=== PATIENT | female | born 1945 | race Caucasian/White ===

== ENCOUNTER 2016-08-14 08:31 | Day surgery (SDC) | payer OTHER ==
[2016-08-05 10:11] LABS: HEMATOCRIT 41.4 % (36.0-48.0); HEMOGLOBIN 13.5 g/dL (12.0-16.0)
[2016-08-05 10:27] LABS: BUN (BLOOD UREA NITROGEN) 13 MG/DL (6-23); CALCIUM, SERUM 8.9 MG/DL (8.5-10.4); CHLORIDE, SERUM 103 MMOL/L (96-112); CO2 (CARBON DIOXIDE) 28 MMOL/L (24-34); CREATININE 0.96 MG/DL (0.55-1.02); GFR AFRICAN AMERICAN 70 ML/MIN (>=60); GFR NON AFRICAN AMERICAN 61 ML/MIN (>=60); GLUCOSE, SERUM 101 MG/DL (60-99); POTASSIUM, SERUM 3.6 MMOL/L (3.5-5.3); SODIUM, SERUM 142 MMOL/L (135-148)
--- NOTE | ~2016-08-14 | OP ---
Record Of Operation [place] [id number] [place]. [address] NAME: CLEVELAND MÁRQUEZ : 49 STATUS : [facility]#: [id number] AGE: 71 ADM/REG DATE : 08/14/16 MR#: [id number] REPORT SERV DATE: 08/18/16 DICTATED BY: JUSTIN AVITIA. DATE: 08/14/16 REPORT STATUS : Draft TRANSCRIBED BY: MODL DATE: 08/14/16 DATE OF PROCEDURE: 08/14/2016 OPERATIVE SURGEON: Justin Avitia M.D. OPERATIVE REHEATER: OPA. Jordy COMPLICATIONS: None. ESTIMATED BLOOD LOSS: Minimal. DISPOSITION: Stable to recovery room. ANESTHESIA: General with interscalene block augmentation for postoperative pain control. PREOPERATIVE DIAGNOSES: 1. Left shoulder pain. 2. 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 3. Degenerative labral tear. 4. Subacromial impingement. 5. Acromioclavicular joint osteoarthritis with impingement. 6. Rotator cuff tendonitis/possible tear. 7. Partial-thickness rotator cuff tear. POSTOPERATIVE DIAGNOSES: 1. Left shoulder pain. 2. Glenohumeral joint osteoarthritis/chondromalacia. 3. Degenerative labral tear. 4. Small full thickness supraspinatus rotator cuff tear. 5. Subacromial impingement. 6. Acromioclavicular joint osteoarthritis with impingement. OPERATIVE PROCEDURE: 1. Left shoulder examination under anesthesia. 2. Left shoulder arthroscopy. 3. Extensive debridement of degenerative labral tear, near circumferentially. 4. Shaving chondroplasty of the glenohumeral joint. 5. Small full thickness supraspinatus rotator cuff repair using a single row technique. 6. Subacromial decompression. 7. Distal clavicular resection (approximately 1 cm). DESCRIPTION OF PROCEDURE: The diagnoses listed above as well as recommended surgical procedure, risks, benefits, thereof were discussed in full detail with Cleveland Márquez and family on the morning of 08/14/2016. The patient and family asked appropriate questions, which were answered to their satisfaction. Informed consent was signed, witnessed, and placed in the chart. The left upper extremity was marked for confirmation and an Record Of Operation [place] [id number] [facility]. [address] NAME: CLEVELAND MÁRQUEZ : 49 STATUS : [facility] PAT#: [id number] AGE: 71 ADM/REG DATE : 08/14/16 MR#: [id number] REPORT SERV DATE: 08/18/16 DICTATED BY: JUSTIN AVITIA DATE: 08/14/16 REPORT STATUS : Draft TRANSCRIBED BY: CARLIE DATE: 08/14/16 interscalene block was placed by the anesthesia team with good success. The patient was then wheeled to the operative arena where general anesthesia was administered. The patient was placed in the lateral decubitus position with an axillary roll in place, and all nonoperative extremities were well padded and secured for the duration of the case. The left lower extremity was examined under anesthesia, and placed in 5 pounds of longitudinal traction, and prepped and draped in the typical orthopedic sterile fashion. A surgical pause was performed, confirming both the correct patient, as well as proper surgical site and procedure. All present were in agreement. The patient received appropriate antibiotics for perioperative antibiosis. All standard anatomic landmarks, as well as arthroscopic portal sites were demarcated using a sterile marking pen. A 15 mL of 0.5% Marcaine without epinephrine was injected in standard posterior, lateral, and anterior portal sites. An 11 blade was used to establish the posterior portal through which an arthroscopic cannula and blunt obturator were inserted atraumatically into the glenohumeral joint. A full diagnostic arthroscopy was performed. There was evidence for degenerative chondromalacia of the glenohumeral joint with several areas of grade 2 to 3 chondromalacia noted. There was also evidence for near circumferential degenerative labral tear. The biceps itself was in decent condition as it traversed in the bicipital groove without evidence for significant tearing or subluxation. There was evidence for a point full-thickness articular sided supraspinatus rotator cuff tear. The subscapularis appeared to be in decent condition. The middle and inferior glenohumeral ligaments as well as the axillary pouch were all within normal limits. Using an inside-out approach, an anterior portal was established and dammed cannula was placed. An arthroscopic shaver was used to perform an extensive debridement of the degenerative labral tear. A shaving chondroplasty was conducted of the glenohumeral joint. The shaver was then used to debride all damaged rotator cuff tissue in preparation for rotator cuff repair. The arthroscope was then withdrawn from the glenohumeral joint and inserted into the subacromial space. The bursal surface of the rotator cuff was evaluated and a small full-thickness supraspinatus rotator cuff tear was confirmed. Using an outside-in spinal needle technique, a lateral portal was established and dammed cannula was placed. An arthroscopic shaver and bur were used to prepare the greater tuberosity for optimal biologic healing and anchor insertion. The rotator cuff was then captured using four suture tapes and then secured back down to the greater tuberosity using a 4.75 [id number] SwiveLock. The repair was tested and found to be very secure without any instability whatsoever. Next, all soft tissue was removed from the undersurface of the acromion demonstrating evidence for downward reflection of the anterolateral border of the acromion. There was also hypertrophic arthritic change at the acromioclavicular joint. A marko was used to perform a subacromial decompression without difficulty. This opened up the subacromial space nicely. A distal clavicular resection of the distal most 8 mm of clavicle and the proximal most 2 mm of the acromion was conducted opening of the AC joint very nicely. At this juncture, all arthroscopic instruments, excess fluid, and debris were removed from the subacromial space. The portals were closed with 3-0 Monocryl in subcuticular layers and Steri-Strips on the skin. Sterile dressing was secured with Medipore tape. The patient was placed in an UltraSling for temporary immobilization. She was then awakened from anesthesia Record Of Operation [address] [address] NAME: CLEVELAND MÁRQUEZ : 49 STATUS : [facility] PAT#: [id number] AGE: 71 ADM/REG DATE : 08/14/16 MR#: [id number] REPORT SERV DATE: 08/18/16 DICTATED BY: JUSTIN AVITIA DATE: 08/14/16 REPORT STATUS : Draft TRANSCRIBED BY: MODEleni DATE: 08/14/16 without difficulty and transferred to the postanesthesia care unit in stable condition, where her postoperative exam was within normal limits understanding that her interscalene block was still in effect. A lengthy discussion was held with the patient's family, detailing all operative findings, as well as procedures performed. All questions were answered to their satisfaction. CCS/MODL Justin Avitia M.D. / [id number] CC: Jose Fernández M.D.
[~2016-08-14 08:31] MED LIST: ACCURETI1 PO; ADVIL PO; ALEVE220 MG PO; ARIMIDEX1 PO; B12100T PO; BESIVANCE0.6 % OPH; CALTRA600D PO; DHE1 OR; DUREZOL0.05 % OP; EFFEXOR XR150 MG PO; GARCINIA CAMBOGIA PO; KLOR-CON 1010 MEQ PO; LEVOTHROID75 MCG PO; MOBIC7.5 PO; OXYTROL 3.3.9 MG/24 TOP; PRILO PO; PRINZIDE1 TA1 PO; PROLENSA1.6 ML OPH; STIOLTO RESPIMAT4 GM INH; ULTRAM50 PO; VITAMIN D1000 UNI1 PO; VITAMIN D31000 UNIT PO; [UNRECOGNIZED DRUG - OTHER] PO
== END 2016-08-14 19:53 | disposition home or self-care (01) ==
LOC: SDC 08:31
PROVIDERS: Specialist
PROC: 0PBB4ZZ Excision of Left Clavicle, Percutaneous Endoscopic Approach (ICD-10-PCS; 2016-08-14)
PROC: 0LQ24ZZ Repair Left Shoulder Tendon, Percutaneous Endoscopic Approach (ICD-10-PCS; principal; 2016-08-14 11:00)
PROC: 0RNK4ZZ Release Left Shoulder Joint, Percutaneous Endoscopic Approach (ICD-10-PCS; 2016-08-14 11:00)
PROC: 0RBK4ZZ Excision of Left Shoulder Joint, Percutaneous Endoscopic Approach (ICD-10-PCS; 2016-08-14 11:00)
DX: M75.122 Complete rotator cuff tear or rupture of left shoulder, not specified as traumatic (principal); S43.402A Unspecified sprain of left shoulder joint, initial encounter; G47.33 Obstructive sleep apnea (adult) (pediatric); I10 Essential (primary) hypertension; K22.70 Barrett's esophagus without dysplasia; K21.9 Gastro-esophageal reflux disease without esophagitis; E03.9 Hypothyroidism, unspecified; F41.9 Anxiety disorder, unspecified; F32.9 Major depressive disorder, single episode, unspecified; Z96.1 Presence of intraocular lens; Z98.41 Cataract extraction status, right eye; K44.9 Diaphragmatic hernia without obstruction or gangrene; Z86.010 Personal history of colon polyps; R35.0 Frequency of micturition; Z90.89 Acquired absence of other organs; Z90.49 Acquired absence of other specified parts of digestive tract; Z98.890 Other specified postprocedural states; Z85.89 Personal history of malignant neoplasm of other organs and systems; Z85.3 Personal history of malignant neoplasm of breast; Z79.811 Long term (current) use of aromatase inhibitors; Z79.1 Long term (current) use of non-steroidal anti-inflammatories (NSAID); Z79.899 Other long term (current) drug therapy
CPT/HCPCS: 71010; 80048; 85014; 85018; 93005; C1713; J0690; J2250; J2370; J2405; J2710; J2795; J3010